=== PATIENT | male | born 1935 | race Caucasian/White ===

== ENCOUNTER → 2019-06-19 | Outpatient (CLI) | payer MEDICARE ==
[~2019-06-19] MED LIST: ATOR20TA PO; GADOTERATE 7.5 MMOL/15 ML SYR ONE; METO200T47 PO; WARF2TAB PO
== END | disposition home or self-care (01) ==
LOC: CFH 10:12
PROVIDERS: ATTEND Psychiatry & Neurology Neurology
DX: G31.89 Other specified degenerative diseases of nervous system (principal)
CPT/HCPCS: 70553; A9575

== ENCOUNTER 2019-08-24 20:13 | Emergency (ER) | payer MEDICARE ==
[~2019-08-24] VITALS: Ht 193 cm; Wt 81.8 kg
[~2019-08-24 20:13] MED LIST changes: -GADOTERATE 7.5 MMOL/15 ML SYR ONE
[2019-08-24] MEDS ORDERED: LIDOCAINE 1%-EPI 1:100K, 20ML ONE (20:16)
[2019-08-24] MEDS ORDERED: LIDOCAINE 1%-EPI 1:100K, 50ML INFIL ONE (20:30)
[2019-08-24] MEDS ORDERED: PLEASE ENTER HEIGHT AND WEIGHT MC SCH (20:30)
[2019-08-24] MEDS ORDERED: LIDOCAINE 1%-EPI 1:100K, 20ML INFIL ONE ×2 (20:30)
--- NOTE | 2019-08-24 22:05 | NUR ---
Pt road tested in room after sutures. Pt had altered gait in room and required holding onto a wall in order to ambulate.
--- NOTE | 2019-08-24 22:05 | NUR ---
Pt has sitter in room now. Pt resting in bed connected to monitor.
[2019-08-24 22:14] LABS: BASOPHILS # (AUTO) 0.04 x10^3/uL (0-0.1); BASOPHILS % (AUTO) 0 % (0-1); EOSINOPHILS # (AUTO) 0.05 x10^3/uL (0-0.4); EOSINOPHILS % (AUTO) 1 % (1-7); LYMPHOCYTES # (AUTO) 1.47 x10^3/uL (1-3.4); LYMPHOCYTES % (AUTO) 15 % (22-44); MD NO; MEAN CORPUSCULAR HEMOGLOBIN 34.7 pg (27.5-34.5); MEAN CORPUSCULAR HGB CONC 33.1 g/dL (33.2-36.2); MEAN CORPUSCULAR VOLUME 104.8 fL (81-97); MEAN PLATELET VOLUME 6.7 fL (7.4-10.4); MONOCYTES # (AUTO) 1.03 x10^3/uL (0.2-0.8); MONOCYTES % (AUTO) 10 % (2-9); NEUTROPHILS # (AUTO) 7.36 x10^3/uL (1.8-6.8); NEUTROPHILS % (AUTO) 74 % (42-75); PLATELET COUNT 291 x10^3/uL (130-400); RED BLOOD COUNT 4.66 x10^6/uL (4.38-5.82); RED CELL DISTRIBUTION WIDTH 13.6 % (9.4-14.8)
--- NOTE | 2019-08-24 22:16 | NUR ---
TASK RN: PT REMOVNIG MONITORING REFUSING VITALS AND SHOUTING AT STAFF. PT REDIRECTED BACK TO BED AND IS NOW SLEEPING WITH SITTER NEARBY FOR SAFETY
[2019-08-24 22:22] LABS: ALANINE AMINOTRANSFERASE 18 U/L (12-78); ALBUMIN 2.9 g/dL (3.4-5.0); ALKALINE PHOSPHATASE 148 U/L (45-117); ANION GAP 6 mmol/L (5-15); BILIRUBIN,TOTAL 1.3 mg/dL (0.2-1.0); CALCIUM 8.6 mg/dL (8.5-10.1); CHLORIDE 100 mmol/L (98-107); CREATININE 0.69 mg/dL (0.7-1.3); TOTAL PROTEIN 7.3 g/dL (6.4-8.2)
[2019-08-24 22:32] VITALS: BP 119/78
--- NOTE | 2019-08-24 23:43 | NUR ---
PT DC HOME VIA [facility] AWARE AND IS WAITING AT HOME FOR HIM
== END 2019-08-24 23:45 | disposition home or self-care (01) ==
LOC: ED 23:05
DX: S01.81XA Laceration without foreign body of other part of head, initial encounter (principal); S01.01XA Laceration without foreign body of scalp, initial encounter; F10.220 Alcohol dependence with intoxication, uncomplicated; Y90.9 Presence of alcohol in blood, level not specified; I10 Essential (primary) hypertension; I48.91 Unspecified atrial fibrillation; G30.9 Alzheimer's disease, unspecified; F02.80 Dementia in other diseases classified elsewhere, unspecified severity, without behavioral disturbance, psychotic disturbance, mood disturbance, and anxiety; W07.XXXA Fall from chair, initial encounter; Y93.89 Activity, other specified; Y92.009 Unspecified place in unspecified non-institutional (private) residence as the place of occurrence of the external cause; Y99.8 Other external cause status
CPT/HCPCS: 12002; 36415; 70450; 72125; 80053; 80307; 85025; 93005; 99285

== ENCOUNTER 2019-10-19 13:07 | Inpatient (IN) | payer MEDICARE ==
[~2019-10-19] VITALS: Ht 193 cm; Wt 100.1 kg
--- NOTE | 2019-10-19 13:59 | NUR ---
BREAK RN: THIS IS A 83 YEAR OLD MALE WHO WAS BIB AMBULANCE FOR LOW BACK TIGHTNESS AND WEAKNESS TO BLE. PER GIOVANNI, PT A/O X 3. ON ARRIVAL, PT ORIENTED X PERSON AND AND HAS DIFFICULTY FOLLOWING COMMANDS. HX OF ALZHEIMERS-UNABLE TO DETERMINE BASELINE. PT STATES "I BLACKED OUT TODAY, THAT'S WHY I'M HERE". PT STATES INTERMITTENT WEAKNESS AND SYNCOPE WHILE WALKING IN HOUSE. DOES NOT KNOW IF HE HIT HEAD. PT DENIES PAIN. PT PLACED ON SPA EXPERIENCE COORDINATOR 90-106 AFIB, CONTINOUS SP02 AND CYCLE VS.
--- NOTE | 2019-10-19 14:10 | NUR ---
BREAK RN: PER MT, PT CALLED AND WOULD LIKE IS "ABDOMINAL CAVITY DRAINED, HE IS SCHEDULED NEXT WEEK FOR IT". NOTIFED MD OF CALL.
[2019-10-19] MEDS ORDERED: SODIUM CHLORIDE FLUSH 10ML SYR IVF ONE (14:30)
[2019-10-19 14:44] LABS: BASOPHILS # (AUTO) 0.07 x10^3/uL (0-0.1); BASOPHILS % (AUTO) 1 % (0-1); EOSINOPHILS # (AUTO) 0.17 x10^3/uL (0-0.4); EOSINOPHILS % (AUTO) 2 % (1-7); LYMPHOCYTES # (AUTO) 1.64 x10^3/uL (1-3.4); LYMPHOCYTES % (AUTO) 16 % (22-44); MD NO; MEAN CORPUSCULAR HEMOGLOBIN 35.2 pg (27.5-34.5); MEAN CORPUSCULAR HGB CONC 33.2 g/dL (33.2-36.2); MEAN CORPUSCULAR VOLUME 106.1 fL (81-97); MEAN PLATELET VOLUME 6.3 fL (7.4-10.4); MONOCYTES # (AUTO) 1.15 x10^3/uL (0.2-0.8); MONOCYTES % (AUTO) 12 % (2-9); NEUTROPHILS # (AUTO) 6.94 x10^3/uL (1.8-6.8); NEUTROPHILS % (AUTO) 70 % (42-75); PLATELET COUNT 235 x10^3/uL (130-400); RED BLOOD COUNT 4.34 x10^6/uL (4.38-5.82); RED CELL DISTRIBUTION WIDTH 13.5 % (9.4-14.8)
--- NOTE | 2019-10-19 14:45 | NUR ---
PT TO XR.
--- NOTE | 2019-10-19 14:45 | NUR ---
Rena briceño in EDM - 10/19/19 at [address] PT [address]
[2019-10-19 14:54] LABS: ALANINE AMINOTRANSFERASE 16 U/L (12-78); ALBUMIN 2.8 g/dL (3.4-5.0); ANION GAP 7 mmol/L (5-15); CALCIUM 8.8 mg/dL (8.5-10.1); CHLORIDE 103 mmol/L (98-107); CREATININE 0.69 mg/dL (0.7-1.3)
[2019-10-19 14:58] LABS: ALKALINE PHOSPHATASE 135 U/L (45-117); TOTAL PROTEIN 6.6 g/dL (6.4-8.2); TROPONIN I < 0.015 ng/mL (0.000-0.045)
--- NOTE | 2019-10-19 15:03 | NUR ---
CALL FROM , UPDATED ON POC.
--- NOTE | 2019-10-19 15:50 | NUR ---
PT OBSERVED SITTING AT END OF BED, HR 167 AFIB ON MONITOR. ERP NOTIFIED. PT ASSISTED BACK TO LYING POSITION WITH HR DECREASE TO 120S, AFIB. EKG BY DULL COAT MILL OPERATOR. NS BOLUS STARTED, INFUSING PER ERP ORDER. AFIB CURRENTLY, RATE 108-126. OTHER VSS/UPDATED IN COMPUTER.
[2019-10-19] MEDS ORDERED: SODIUM CHLORIDE 0.9% 1,000ML IVBOLUS ONE (16:00)
--- NOTE | 2019-10-19 16:03 | NUR ---
SITTER REQUEST D/T CONFUSION, PREVIOUS ED NOTE STATING PT REMOVING MEDICAL MONITORING AND ATTEMPTING TO GET OOB.
--- NOTE | 2019-10-19 16:13 | NUR ---
PT RESTING QUIETLY ON GURNEY. AFIB, RATE 100 ON MONITOR-ERP UPDATED.
[2019-10-19] MEDS ORDERED: DILTIAZEM 5 MG/ML, 5ML ONE (16:27)
[2019-10-19] MEDS ORDERED: DILTIAZEM 5 MG/ML, 5ML IV ONE (16:30)
--- NOTE | 2019-10-19 16:32 | NUR ---
ODALIS GIVEN PER ERP ORDER FOR AFIB 130S. AT BS. ALL QUESTIONS ANSWERED. PER , SHE CALLED GIOVANNI B/C PT COULDN'T GET UP OOT OF CHAIR TODAY. ERP AT BS.
[2019-10-19] MEDS ORDERED: SPIRONOLACTONE PO (16:37)
[2019-10-19] MEDS ORDERED: LASIX PO (16:37)
--- NOTE | 2019-10-19 16:50 | NUR ---
BLANKET PROVIDED PER REQUEST BY . PT APPEARS COMFORTABLE. VSS.
--- NOTE | 2019-10-19 17:00 | NUR ---
TRUCK LEASING MANAGER: PT'S TO BE LEAVING PER PRIMARY RN ORQUIDEA AND RN REPORTS PT REMAINS CONFUSED, REQUESTS SITTER. HOUSE [facility]SING [facility] NOTIFIED AND AWARE, "TO ASSIGN SITTER WHEN STAFF AVAILABLE." INDUSTRIAL MAINTENANCE MECHANIC IRVING CURRENTLY SITTER AT BEDSIDE FOR SAFETY OBSERVATION UNTIL ASSISTANT SCIENTIST AVAILABLE.
--- NOTE | 2019-10-19 17:03 | NUR ---
[facility] IN TO SEE PT. CURTAIN FELLER BLINDSTITCH TO BE SITTER.
[2019-10-19] MEDS ORDERED: SODIUM CHLORIDE 0.9% 1,000 ML IV SCH (17:13)
[2019-10-19] MEDS ORDERED: LABETALOL 5MG/ML, 20ML IVPush PRN (17:30)
[2019-10-19] MEDS ORDERED: ACETAMINOPHEN 325 MG TABLET PO PRN (17:30)
--- NOTE | 2019-10-19 17:42 | NUR ---
PT TO CT.
[2019-10-19 17:50] LABS: TROPONIN I < 0.015 ng/mL (0.000-0.045)
[2019-10-19 17:50] LABS: INTERNATIONAL NORMALIZED RATIO 1.13 (0.93-1.1)
--- NOTE | 2019-10-19 18:09 | NUR ---
ATTEMPT TO CALL REPORT, RN DANIELALE-WILL CALL BACK.
--- NOTE | 2019-10-19 18:17 | NUR ---
BOOK JACKET COVER MACHINE OPERATOR: THERAPEUTIC RIDING INSTRUCTOR AT BEDSIDE AT THIS TIME TO RELIEVE JIG BUILDER FROM SITTER POSITION. PRIMARY RN ORQUIDEA AWARE OF CHANGED.
--- NOTE | 2019-10-19 18:25 | NUR ---
CALL TO FLOOR SUP AFTER RN NOT AVAILABLE FOR REPORT. SUP ABLE TO GET RN. REPORT TO HECTOR HENDRICKS, PT READY FOR TRANSPORT TO FLOOR.
--- NOTE | 2019-10-19 18:35 | NUR ---
US AT BS. PT TO BE TRANSPORTED TO FLOOR AFTER US.
[2019-10-19 19:43] VITALS: BP 130/76
[2019-10-19] MEDS: METOPROLOL TARTRATE 50 MG TAB PO SCH (20:55)
[2019-10-19] MEDS: ENOXAPARIN 40 MG/0.4 ML SQ SCH (20:55)
[2019-10-19 23:48] LABS: TROPONIN I < 0.015 ng/mL (0.000-0.045)
[2019-10-20 00:30] LABS: MICROSCOPIC NOT IND
[2019-10-20 00:44] VITALS: BP 132/80
[2019-10-20 05:14] LABS: BASOPHILS # (AUTO) 0.03 x10^3/uL (0-0.1); BASOPHILS % (AUTO) 0 % (0-1); EOSINOPHILS # (AUTO) 0.08 x10^3/uL (0-0.4); EOSINOPHILS % (AUTO) 1 % (1-7); LYMPHOCYTES # (AUTO) 1.17 x10^3/uL (1-3.4); LYMPHOCYTES % (AUTO) 9 % (22-44); MD NO; MEAN CORPUSCULAR HEMOGLOBIN 34.8 pg (27.5-34.5); MEAN CORPUSCULAR HGB CONC 32.9 g/dL (33.2-36.2); MEAN CORPUSCULAR VOLUME 105.8 fL (81-97); MEAN PLATELET VOLUME 6.7 fL (7.4-10.4); MONOCYTES # (AUTO) 1.21 x10^3/uL (0.2-0.8); MONOCYTES % (AUTO) 10 % (2-9); NEUTROPHILS # (AUTO) 9.89 x10^3/uL (1.8-6.8); NEUTROPHILS % (AUTO) 80 % (42-75); PLATELET COUNT 226 x10^3/uL (130-400); RED BLOOD COUNT 4.37 x10^6/uL (4.38-5.82); RED CELL DISTRIBUTION WIDTH 13.2 % (9.4-14.8)
[2019-10-20 05:17] LABS: ALBUMIN 2.6 g/dL (3.4-5.0); ANION GAP 8 mmol/L (5-15); CALCIUM 8.3 mg/dL (8.5-10.1); CHLORIDE 104 mmol/L (98-107)
[2019-10-20 05:21] LABS: ALANINE AMINOTRANSFERASE 15 U/L (12-78); ALKALINE PHOSPHATASE 112 U/L (45-117); BILIRUBIN,TOTAL 3.9 mg/dL (0.2-1.0); CREATININE 0.68 mg/dL (0.7-1.3); TOTAL PROTEIN 6.4 g/dL (6.4-8.2); TROPONIN I < 0.015 ng/mL (0.000-0.045)
[2019-10-20 06:39] VITALS: BP 125/80
[2019-10-20] MEDS: ASPIRIN 325 MG TABLET EC PO SCH (06:39)
[2019-10-20] MEDS: METOPROLOL TARTRATE 50 MG TAB PO SCH ×2 (06:40→18:47)
[2019-10-20 15:51] VITALS: BP 123/77
[2019-10-20 18:27] VITALS: BP 115/71
[2019-10-20] MEDS: TAMSULOSIN 0.4 MG CAP.ER.24H PO SCH (21:39)
[2019-10-20] MEDS: ENOXAPARIN 40 MG/0.4 ML SQ SCH (21:39)
[2019-10-21 00:02] VITALS: BP 123/85
[2019-10-21] MEDS ORDERED: INSTRUCTION SEE COMMENTS XX PRN (00:30)
[2019-10-21] MEDS ORDERED: AVOID BENZODIAZEPINES MC PRN (00:30)
[2019-10-21] MEDS: MELATONIN 3 MG TABLET PO SCH ×2 (03:26→21:31)
[2019-10-21 05:30] LABS: BASOPHILS # (AUTO) 0.03 x10^3/uL (0-0.1); BASOPHILS % (AUTO) 0 % (0-1); EOSINOPHILS # (AUTO) 0.01 x10^3/uL (0-0.4); EOSINOPHILS % (AUTO) 0 % (1-7); LYMPHOCYTES # (AUTO) 0.53 x10^3/uL (1-3.4); LYMPHOCYTES % (AUTO) 5 % (22-44); MD NO; MEAN CORPUSCULAR HGB CONC 33.2 g/dL (33.2-36.2); MEAN CORPUSCULAR VOLUME 105.4 fL (81-97); MEAN PLATELET VOLUME 6.9 fL (7.4-10.4); MONOCYTES # (AUTO) 0.73 x10^3/uL (0.2-0.8); MONOCYTES % (AUTO) 6 % (2-9); NEUTROPHILS # (AUTO) 10.48 x10^3/uL (1.8-6.8); NEUTROPHILS % (AUTO) 89 % (42-75); PLATELET COUNT 216 x10^3/uL (130-400); RED BLOOD COUNT 4.07 x10^6/uL (4.38-5.82); RED CELL DISTRIBUTION WIDTH 13.4 % (9.4-14.8)
[2019-10-21 05:39] LABS: ANION GAP 11 mmol/L (5-15); CALCIUM 8.3 mg/dL (8.5-10.1); CHLORIDE 103 mmol/L (98-107); CREATININE 0.84 mg/dL (0.7-1.3)
[2019-10-21] MEDS: METOPROLOL TARTRATE 50 MG TAB PO SCH ×2 (06:26→17:35)
[2019-10-21] MEDS: ASPIRIN 325 MG TABLET EC PO SCH (06:26)
[2019-10-21 06:38] VITALS: BP 126/74
[2019-10-21 12:05] VITALS: BP 120/80
[2019-10-21 17:35] VITALS: BP 123/78
[2019-10-21 19:00] VITALS: BP 116/78
[2019-10-21] MEDS: ENOXAPARIN 40 MG/0.4 ML SQ SCH (21:31)
[2019-10-21] MEDS: TAMSULOSIN 0.4 MG CAP.ER.24H PO SCH (21:31)
[2019-10-22 04:00] VITALS: BP 132/76
[2019-10-22 05:37] LABS: MEAN CORPUSCULAR HEMOGLOBIN 35.9 pg (27.5-34.5); MEAN CORPUSCULAR HGB CONC 33.7 g/dL (33.2-36.2); MEAN CORPUSCULAR VOLUME 106.5 fL (81-97); MEAN PLATELET VOLUME 6.8 fL (7.4-10.4); PLATELET COUNT 241 x10^3/uL (130-400); RED BLOOD COUNT 4.24 x10^6/uL (4.38-5.82); RED CELL DISTRIBUTION WIDTH 13.1 % (9.4-14.8)
[2019-10-22 05:42] LABS: ANION GAP 9 mmol/L (5-15); CHLORIDE 103 mmol/L (98-107); CREATININE 0.81 mg/dL (0.7-1.3)
[2019-10-22 05:54] LABS: BASOPHILS # (AUTO) 0.04 x10^3/uL (0-0.1); BASOPHILS % (AUTO) 0 % (0-1); EOSINOPHILS # (AUTO) 0.09 x10^3/uL (0-0.4); EOSINOPHILS % (AUTO) 1 % (1-7); LYMPHOCYTES # (AUTO) 1.31 x10^3/uL (1-3.4); LYMPHOCYTES % (AUTO) 9 % (22-44); MD SCAN; MONOCYTES # (AUTO) 1.79 x10^3/uL (0.2-0.8); MONOCYTES % (AUTO) 13 % (2-9); NEUTROPHILS # (AUTO) 10.88 x10^3/uL (1.8-6.8); NEUTROPHILS % (AUTO) 77 % (42-75)
[2019-10-22 06:18] VITALS: BP 111/79
[2019-10-22] MEDS: METOPROLOL TARTRATE 50 MG TAB PO SCH ×2 (06:20→20:03)
[2019-10-22] MEDS: ASPIRIN 325 MG TABLET EC PO SCH (06:20)
[2019-10-22 06:35] VITALS: BP 106/62
[2019-10-22] MEDS: QUETIAPINE 25MG TABLET PO PRN (11:12)
[2019-10-22] MEDS ORDERED: ALBUTEROL/IPRATROPIUM 2.5MG/0.5MG, 3 ML ONE (11:24)
[2019-10-22 12:10] VITALS: BP 123/79
[2019-10-22 19:56] VITALS: BP 116/77
[2019-10-22] MEDS: ENOXAPARIN 40 MG/0.4 ML SQ SCH (20:03)
[2019-10-22] MEDS: MELATONIN 3 MG TABLET PO SCH (20:03)
[2019-10-22] MEDS: TAMSULOSIN 0.4 MG CAP.ER.24H PO SCH (20:03)
[2019-10-23 01:14] VITALS: BP 110/70
[2019-10-23 06:05] VITALS: BP 110/76
[2019-10-23] MEDS: METOPROLOL TARTRATE 50 MG TAB PO SCH ×2 (06:07→17:37)
[2019-10-23] MEDS: ASPIRIN 325 MG TABLET EC PO SCH (06:07)
[2019-10-23 06:30] VITALS: BP 107/65
[2019-10-23 07:01] LABS: MEAN CORPUSCULAR HEMOGLOBIN 35.2 pg (27.5-34.5); MEAN CORPUSCULAR VOLUME 106.7 fL (81-97); MEAN PLATELET VOLUME 6.6 fL (7.4-10.4); PLATELET COUNT 203 x10^3/uL (130-400); RED BLOOD COUNT 4.27 x10^6/uL (4.38-5.82); RED CELL DISTRIBUTION WIDTH 13.3 % (9.4-14.8)
[2019-10-23 07:14] LABS: ANION GAP 8 mmol/L (5-15); CALCIUM 8.1 mg/dL (8.5-10.1); CHLORIDE 108 mmol/L (98-107); CREATININE 0.62 mg/dL (0.7-1.3)
[2019-10-23 07:21] LABS: BASOPHILS # (AUTO) 0.05 x10^3/uL (0-0.1); BASOPHILS % (AUTO) 1 % (0-1); EOSINOPHILS # (AUTO) 0.23 x10^3/uL (0-0.4); EOSINOPHILS % (AUTO) 3 % (1-7); LYMPHOCYTES # (AUTO) 1.33 x10^3/uL (1-3.4); LYMPHOCYTES % (AUTO) 14 % (22-44); MD SCAN; MONOCYTES # (AUTO) 1.19 x10^3/uL (0.2-0.8); MONOCYTES % (AUTO) 13 % (2-9); NEUTROPHILS # (AUTO) 6.51 x10^3/uL (1.8-6.8); NEUTROPHILS % (AUTO) 70 % (42-75)
[2019-10-23 13:45] VITALS: BP 115/76
[2019-10-23 13:46] VITALS: BP 106/66
[2019-10-23] MEDS ORDERED: OLAN5TAB7 PO (16:14)
[2019-10-23] MEDS ORDERED: GALA4TAB PO (16:14)
[2019-10-23] MEDS ORDERED: SPIR50TA PO (16:14)
[2019-10-23] MEDS ORDERED: FURO20TA3 PO (16:14)
[2019-10-23] MEDS ORDERED: FUROSEMIDE 20 MG TABLET ONE (17:33)
[2019-10-23] MEDS: FUROSEMIDE 20 MG TABLET PO SCH (17:37)
[2019-10-23 20:04] VITALS: BP 101/62
[2019-10-23] MEDS ORDERED: BISACODYL 10 MG SUPP PR PRN (21:00)
[2019-10-23] MEDS: DOCUSATE 100 MG CAPSULE PO SCH (21:35)
[2019-10-23] MEDS: TAMSULOSIN 0.4 MG CAP.ER.24H PO SCH (21:35)
[2019-10-23] MEDS: GALANTAMINE 4 MG TABLET PO SCH (21:35)
[2019-10-23] MEDS: ENOXAPARIN 40 MG/0.4 ML SQ SCH (21:36)
[2019-10-23] MEDS: MELATONIN 3 MG TABLET PO SCH (21:36)
[2019-10-24 01:23] VITALS: BP 116/77
[2019-10-24 05:13] VITALS: BP 102/74
[2019-10-24 05:18] LABS: ANION GAP 7 mmol/L (5-15); CALCIUM 8.5 mg/dL (8.5-10.1); CHLORIDE 108 mmol/L (98-107); CREATININE 0.62 mg/dL (0.7-1.3)
[2019-10-24] MEDS: ASPIRIN 325 MG TABLET EC PO SCH (06:00)
[2019-10-24] MEDS: METOPROLOL TARTRATE 50 MG TAB PO SCH ×2 (06:00→17:37)
[2019-10-24 07:55] LABS: BASOPHILS # (AUTO) 0.04 x10^3/uL (0-0.1); BASOPHILS % (AUTO) 0 % (0-1); EOSINOPHILS # (AUTO) 0.16 x10^3/uL (0-0.4); EOSINOPHILS % (AUTO) 2 % (1-7); LYMPHOCYTES # (AUTO) 1.33 x10^3/uL (1-3.4); LYMPHOCYTES % (AUTO) 13 % (22-44); MD SCAN; MEAN CORPUSCULAR HEMOGLOBIN 34.9 pg (27.5-34.5); MEAN CORPUSCULAR HGB CONC 32.8 g/dL (33.2-36.2); MEAN CORPUSCULAR VOLUME 106.3 fL (81-97); MONOCYTES # (AUTO) 1.31 x10^3/uL (0.2-0.8); MONOCYTES % (AUTO) 13 % (2-9); NEUTROPHILS # (AUTO) 7.18 x10^3/uL (1.8-6.8); NEUTROPHILS % (AUTO) 72 % (42-75); PLATELET COUNT 254 x10^3/uL (130-400); RED BLOOD COUNT 4.57 x10^6/uL (4.38-5.82); RED CELL DISTRIBUTION WIDTH 13.4 % (9.4-14.8)
[2019-10-24] MEDS: DOCUSATE 100 MG CAPSULE PO SCH ×2 (08:13→20:43)
[2019-10-24] MEDS: OLANZAPINE 5 MG TABLET PO SCH (08:13)
[2019-10-24] MEDS: GALANTAMINE 4 MG TABLET PO SCH ×2 (08:13→20:43)
[2019-10-24] MEDS: FUROSEMIDE 20 MG TABLET PO SCH ×2 (08:14→10:47)
[2019-10-24] MEDS: SPIRONOLACTONE 50 MG TABLET PO SCH (08:14)
[2019-10-24 08:19] VITALS: BP 105/68
[2019-10-24 13:44] VITALS: BP 102/67
[2019-10-24] MEDS: ENOXAPARIN 40 MG/0.4 ML SQ SCH (20:43)
[2019-10-24] MEDS: MELATONIN 3 MG TABLET PO SCH (20:43)
[2019-10-24] MEDS: TAMSULOSIN 0.4 MG CAP.ER.24H PO SCH (20:43)
[2019-10-24 21:00] VITALS: BP 102/66
[2019-10-24] MEDS: QUETIAPINE 25MG TABLET PO PRN (22:44)
[2019-10-25 06:01] VITALS: BP 135/80
[2019-10-25] MEDS: ASPIRIN 325 MG TABLET EC PO SCH (06:01)
[2019-10-25] MEDS: METOPROLOL TARTRATE 50 MG TAB PO SCH ×2 (06:01→18:00)
[2019-10-25] MEDS: SPIRONOLACTONE 50 MG TABLET PO SCH (07:58)
[2019-10-25] MEDS: GALANTAMINE 4 MG TABLET PO SCH ×2 (07:58→20:41)
[2019-10-25] MEDS: DOCUSATE 100 MG CAPSULE PO SCH ×2 (07:58→20:41)
[2019-10-25] MEDS: FUROSEMIDE 20 MG TABLET PO SCH ×2 (07:58→16:49)
[2019-10-25] MEDS: OLANZAPINE 5 MG TABLET PO SCH (07:58)
[2019-10-25 08:20] VITALS: BP 108/61
[2019-10-25 14:08] VITALS: BP 99/65
[2019-10-25 20:17] VITALS: BP 103/72
[2019-10-25] MEDS: TAMSULOSIN 0.4 MG CAP.ER.24H PO SCH (20:41)
[2019-10-25] MEDS: MELATONIN 3 MG TABLET PO SCH (20:41)
[2019-10-25] MEDS: ENOXAPARIN 40 MG/0.4 ML SQ SCH (20:41)
[2019-10-26 01:19] VITALS: BP 102/68
[2019-10-26 05:49] VITALS: BP 106/71
[2019-10-26] MEDS: METOPROLOL TARTRATE 50 MG TAB PO SCH ×2 (05:50→23:09)
[2019-10-26] MEDS: ASPIRIN 325 MG TABLET EC PO SCH (05:50)
[2019-10-26 06:48] VITALS: BP 109/70
[2019-10-26 07:15] LABS: BASOPHILS # (AUTO) 0.04 x10^3/uL (0-0.1); BASOPHILS % (AUTO) 0 % (0-1); EOSINOPHILS # (AUTO) 0.12 x10^3/uL (0-0.4); EOSINOPHILS % (AUTO) 1 % (1-7); LYMPHOCYTES # (AUTO) 1.28 x10^3/uL (1-3.4); LYMPHOCYTES % (AUTO) 12 % (22-44); MD NO; MEAN CORPUSCULAR HGB CONC 32.8 g/dL (33.2-36.2); MEAN CORPUSCULAR VOLUME 106.9 fL (81-97); MEAN PLATELET VOLUME 6.6 fL (7.4-10.4); MONOCYTES # (AUTO) 1.22 x10^3/uL (0.2-0.8); MONOCYTES % (AUTO) 12 % (2-9); NEUTROPHILS # (AUTO) 7.69 x10^3/uL (1.8-6.8); NEUTROPHILS % (AUTO) 74 % (42-75); PLATELET COUNT 255 x10^3/uL (130-400); RED BLOOD COUNT 4.87 x10^6/uL (4.38-5.82); RED CELL DISTRIBUTION WIDTH 13.5 % (9.4-14.8)
[2019-10-26 07:28] LABS: ANION GAP 8 mmol/L (5-15); CALCIUM 8.4 mg/dL (8.5-10.1); CHLORIDE 106 mmol/L (98-107)
[2019-10-26 07:29] LABS: CREATININE 0.64 mg/dL (0.7-1.3)
[2019-10-26] MEDS: FUROSEMIDE 20 MG TABLET PO SCH ×2 (07:36→17:47)
[2019-10-26] MEDS: GALANTAMINE 4 MG TABLET PO SCH ×2 (10:22→23:08)
[2019-10-26] MEDS: SPIRONOLACTONE 50 MG TABLET PO SCH (10:22)
[2019-10-26] MEDS: OLANZAPINE 5 MG TABLET PO SCH (10:22)
[2019-10-26] MEDS: DOCUSATE 100 MG CAPSULE PO SCH ×2 (10:22→23:08)
[2019-10-26 14:48] VITALS: BP 101/69
[2019-10-26 21:14] VITALS: BP 110/65
[2019-10-26] MEDS: MELATONIN 3 MG TABLET PO SCH (23:08)
[2019-10-26] MEDS: TAMSULOSIN 0.4 MG CAP.ER.24H PO SCH (23:08)
[2019-10-26] MEDS: ENOXAPARIN 40 MG/0.4 ML SQ SCH (23:09)
[2019-10-27 05:06] LABS: ANION GAP 6 mmol/L (5-15); CALCIUM 8.5 mg/dL (8.5-10.1); CHLORIDE 104 mmol/L (98-107); CREATININE 0.76 mg/dL (0.7-1.3)
[2019-10-27] MEDS: ASPIRIN 325 MG TABLET EC PO SCH (05:58)
[2019-10-27] MEDS: METOPROLOL TARTRATE 50 MG TAB PO SCH ×2 (05:58→17:46)
[2019-10-27 06:42] VITALS: BP 108/67
[2019-10-27 11:01] VITALS: BP 102/69
[2019-10-27] MEDS: FUROSEMIDE 20 MG TABLET PO SCH ×2 (11:16→17:46)
[2019-10-27] MEDS: DOCUSATE 100 MG CAPSULE PO SCH ×2 (11:16→23:50)
[2019-10-27] MEDS: SPIRONOLACTONE 50 MG TABLET PO SCH (11:16)
[2019-10-27] MEDS: OLANZAPINE 5 MG TABLET PO SCH (11:17)
[2019-10-27] MEDS: GALANTAMINE 4 MG TABLET PO SCH ×2 (11:17→23:50)
[2019-10-27 13:45] VITALS: BP 115/74
[2019-10-27 17:43] VITALS: BP 109/74
[2019-10-27 18:40] VITALS: BP 94/64
[2019-10-27] MEDS: MELATONIN 3 MG TABLET PO SCH (23:50)
[2019-10-27] MEDS: TAMSULOSIN 0.4 MG CAP.ER.24H PO SCH (23:51)
[2019-10-27] MEDS: ENOXAPARIN 40 MG/0.4 ML SQ SCH (23:51)
[2019-10-28] MEDS: ASPIRIN 325 MG TABLET EC PO SCH (06:16)
[2019-10-28] MEDS: METOPROLOL TARTRATE 50 MG TAB PO SCH ×2 (06:16→18:15)
[2019-10-28 06:43] LABS: BASOPHILS # (AUTO) 0.05 x10^3/uL (0-0.1); BASOPHILS % (AUTO) 0 % (0-1); EOSINOPHILS # (AUTO) 0.14 x10^3/uL (0-0.4); EOSINOPHILS % (AUTO) 1 % (1-7); LYMPHOCYTES # (AUTO) 1.63 x10^3/uL (1-3.4); LYMPHOCYTES % (AUTO) 15 % (22-44); MD NO; MEAN CORPUSCULAR HEMOGLOBIN 34.9 pg (27.5-34.5); MEAN CORPUSCULAR VOLUME 105.7 fL (81-97); MEAN PLATELET VOLUME 6.9 fL (7.4-10.4); MONOCYTES # (AUTO) 1.34 x10^3/uL (0.2-0.8); MONOCYTES % (AUTO) 12 % (2-9); NEUTROPHILS # (AUTO) 7.68 x10^3/uL (1.8-6.8); NEUTROPHILS % (AUTO) 71 % (42-75); PLATELET COUNT 263 x10^3/uL (130-400); RED CELL DISTRIBUTION WIDTH 13.7 % (9.4-14.8)
[2019-10-28 06:47] LABS: ANION GAP 8 mmol/L (5-15); CALCIUM 8.4 mg/dL (8.5-10.1); CHLORIDE 101 mmol/L (98-107); CREATININE 0.71 mg/dL (0.7-1.3)
[2019-10-28 07:10] VITALS: BP 93/61
[2019-10-28] MEDS: FUROSEMIDE 20 MG TABLET PO SCH ×2 (09:18→18:15)
[2019-10-28] MEDS: OLANZAPINE 5 MG TABLET PO SCH (09:19)
[2019-10-28] MEDS: GALANTAMINE 4 MG TABLET PO SCH ×2 (09:19→20:50)
[2019-10-28] MEDS: SPIRONOLACTONE 50 MG TABLET PO SCH (09:22)
[2019-10-28] MEDS: DOCUSATE 100 MG CAPSULE PO SCH ×2 (09:22→20:51)
[2019-10-28 09:23] VITALS: BP 99/60
[2019-10-28] MEDS ORDERED: SODIUM CHLORIDE 0.9%, 250ML IVBOLUS ONE (13:30)
[2019-10-28 13:40] VITALS: BP 122/73
[2019-10-28 19:00] VITALS: BP 102/70
[2019-10-28] MEDS: TAMSULOSIN 0.4 MG CAP.ER.24H PO SCH (20:50)
[2019-10-28] MEDS: MELATONIN 3 MG TABLET PO SCH (20:50)
[2019-10-28] MEDS: ENOXAPARIN 40 MG/0.4 ML SQ SCH (20:51)
[2019-10-29 05:05] LABS: ALANINE AMINOTRANSFERASE 50 U/L (12-78); ALBUMIN 2.6 g/dL (3.4-5.0); ANION GAP 8 mmol/L (5-15); CALCIUM 8.5 mg/dL (8.5-10.1); CHLORIDE 98 mmol/L (98-107); CREATININE 0.75 mg/dL (0.7-1.3)
[2019-10-29 05:08] LABS: ALKALINE PHOSPHATASE 125 U/L (45-117); BILIRUBIN,TOTAL 0.8 mg/dL (0.2-1.0); TOTAL PROTEIN 6.1 g/dL (6.4-8.2)
[2019-10-29] MEDS: METOPROLOL TARTRATE 50 MG TAB PO SCH ×2 (06:17→17:25)
[2019-10-29] MEDS: ASPIRIN 325 MG TABLET EC PO SCH (06:17)
[2019-10-29 07:03] LABS: BASOPHILS # (AUTO) 0.05 x10^3/uL (0-0.1); BASOPHILS % (AUTO) 0 % (0-1); EOSINOPHILS # (AUTO) 0.15 x10^3/uL (0-0.4); EOSINOPHILS % (AUTO) 1 % (1-7); LYMPHOCYTES # (AUTO) 1.46 x10^3/uL (1-3.4); LYMPHOCYTES % (AUTO) 12 % (22-44); MD NO; MEAN CORPUSCULAR HEMOGLOBIN 34.9 pg (27.5-34.5); MEAN CORPUSCULAR VOLUME 105.9 fL (81-97); MONOCYTES # (AUTO) 1.32 x10^3/uL (0.2-0.8); MONOCYTES % (AUTO) 11 % (2-9); NEUTROPHILS # (AUTO) 8.86 x10^3/uL (1.8-6.8); NEUTROPHILS % (AUTO) 75 % (42-75); PLATELET COUNT 270 x10^3/uL (130-400); RED BLOOD COUNT 4.61 x10^6/uL (4.38-5.82); RED CELL DISTRIBUTION WIDTH 13.3 % (9.4-14.8)
[2019-10-29 07:05] VITALS: BP 105/66
[2019-10-29] MEDS: SPIRONOLACTONE 50 MG TABLET PO SCH (09:14)
[2019-10-29] MEDS: FUROSEMIDE 20 MG TABLET PO SCH ×2 (09:14→17:25)
[2019-10-29] MEDS: OLANZAPINE 5 MG TABLET PO SCH (09:14)
[2019-10-29] MEDS: GALANTAMINE 4 MG TABLET PO SCH (09:14)
[2019-10-29] MEDS: DOCUSATE 100 MG CAPSULE PO SCH (09:14)
[2019-10-29 12:50] VITALS: BP 106/70
[2019-10-29] MEDS ORDERED: METO50TA82 PO (13:20)
[2019-10-29] MEDS ORDERED: TAMS-11 PO (13:20)
[2019-10-29] MEDS ORDERED: ASPI-650 PO (13:20)
[2019-10-29] MEDS ORDERED: QUET25TA7 PO (13:20)
[2019-10-29] MEDS ORDERED: ACET325T26 PO (13:20)
[2019-10-29] MEDS ORDERED: ENOX40SY4 SQ (13:20)
== END 2019-10-29 18:44 | DRG 308 ==
LOC: ED 15:25 → EDIP 16:39 → INTOOBSV 16:39 → OBSVTOIN 16:39 → 5SO 19:10
PROVIDERS: ADMIT Internal Medicine; ATTEND Hospitalist
PROC: 0T9B70Z Drainage of Bladder with Drainage Device, Via Natural or Artificial Opening (ICD-10-PCS; principal; 2019-10-20)
DX: I48.91 Unspecified atrial fibrillation (principal); E43 Unspecified severe protein-calorie malnutrition; D68.59 Other primary thrombophilia; I65.29 Occlusion and stenosis of unspecified carotid artery; G30.9 Alzheimer's disease, unspecified; F02.80 Dementia in other diseases classified elsewhere, unspecified severity, without behavioral disturbance, psychotic disturbance, mood disturbance, and anxiety; Z66 Do not resuscitate; H91.90 Unspecified hearing loss, unspecified ear; I10 Essential (primary) hypertension; K74.60 Unspecified cirrhosis of liver; R14.0 Abdominal distension (gaseous); R33.9 Retention of urine, unspecified; Z91.14 Patient's other noncompliance with medication regimen; Z68.26 Body mass index [BMI] 26.0-26.9, adult
CPT/HCPCS: 36415; 70450; 71045; 72110; 76705; 76770; 80048; 80053; 81003; 84443; 84484; 85025; 85610; 93005; 93306; 93880; G0378; J1650; J7030; J7050

== ENCOUNTER 2020-01-31 15:26 | Emergency (ER) | payer MEDICARE ==
[~2020-01-31 15:26] MED LIST changes: +ACET325T26 PO; +ASPI-650 PO; +ENOX40SY4 SQ; +FURO20TA3 PO; +GALA4TAB PO; +LASIX PO; +METO-95 PO; +METO50TA82 PO; +OLAN5TAB7 PO; +QUET25TA7 PO; +RISP0.5T24 PO; +SPIR50TA PO; +SPIRONOLACTONE PO; +TAMS-11 PO
[2020-01-31 16:02] LABS: BASOPHILS # (AUTO) 0.05 x10^3/uL (0-0.1); BASOPHILS % (AUTO) 0 % (0-1); EOSINOPHILS # (AUTO) 0.14 x10^3/uL (0-0.4); EOSINOPHILS % (AUTO) 1 % (1-7); LYMPHOCYTES # (AUTO) 1.07 x10^3/uL (1-3.4); LYMPHOCYTES % (AUTO) 8 % (22-44); MD NO; MEAN CORPUSCULAR HEMOGLOBIN 32.3 pg (27.5-34.5); MEAN CORPUSCULAR HGB CONC 32.2 g/dL (33.2-36.2); MEAN CORPUSCULAR VOLUME 100.2 fL (81-97); MEAN PLATELET VOLUME 5.9 fL (7.4-10.4); MONOCYTES # (AUTO) 1.02 x10^3/uL (0.2-0.8); MONOCYTES % (AUTO) 7 % (2-9); NEUTROPHILS % (AUTO) 84 % (42-75); PLATELET COUNT 294 x10^3/uL (130-400); RED BLOOD COUNT 4.72 x10^6/uL (4.38-5.82); RED CELL DISTRIBUTION WIDTH 15.1 % (9.4-14.8)
[2020-01-31 16:14] LABS: ALANINE AMINOTRANSFERASE 22 U/L (12-78); ALBUMIN 2.8 g/dL (3.4-5.0); ANION GAP 5 mmol/L (5-15); CALCIUM 9.3 mg/dL (8.5-10.1); CHLORIDE 102 mmol/L (98-107); CREATININE 0.83 mg/dL (0.7-1.3)
[2020-01-31 16:16] LABS: ALKALINE PHOSPHATASE 148 U/L (45-117); BILIRUBIN,TOTAL 2.4 mg/dL (0.2-1.0); TOTAL PROTEIN 6.9 g/dL (6.4-8.2)
[2020-01-31] MEDS ORDERED: LIDOCAINE 1%, 10ML ONE (16:20)
--- NOTE | 2020-01-31 16:21 | NUR ---
PT HERE FROM HOME. PT UNDER HOSPICE CARE PER ERP. SIGNED DNR ON CHART. PT'S SPOUSE: TONO RAMIREZ [phone].
[2020-01-31] MEDS ORDERED: LIDOCAINE-MPF 1%, 5ML ONE (16:27)
--- NOTE | 2020-01-31 16:34 | NUR ---
PARACENTESIS RN AT BS.
--- NOTE | 2020-01-31 17:40 | NUR ---
CALLED PT'S SPOUSE, INFORMED HER PT IS READY FOR DC. PER SPOUSE, PT NEEDS AMBULANCE TRANSPORT TO THEIR HOME: [id number] [address] [place]. WILL NOTIFY [facility].
--- NOTE | 2020-01-31 17:54 | NUR ---
ASSISTED PT TO STANDING POSITION W/ COUNTRY SALES MANAGER ASSISTANCE. PT VERY WEAK, UNABLE TO TAKE ANY STEPS. [facility] RN NOTIFIED; [facility] TO BE ORDERED. PT RETURNED TO [facility] W/OUT INCIDENT.
[2020-01-31] MEDS ORDERED: SPIR50TA4 PO (18:05)
[2020-01-31] MEDS ORDERED: OLAN5TAB9 PO (18:05)
[2020-01-31] MEDS ORDERED: HYDR-826 PO (18:05)
[2020-01-31 18:06] VITALS: BP 115/29
--- NOTE | 2020-01-31 18:30 | NUR ---
PT REPORT TO ALBA AL RN. PT CARE TRANSFERRED.
--- NOTE | 2020-01-31 19:13 | NUR ---
[facility] HERE FOR PT TRANSPORT HOME
== END 2020-01-31 19:25 | disposition home or self-care (01) ==
LOC: ED 18:03
DX: K70.31 Alcoholic cirrhosis of liver with ascites (principal); R41.82 Altered mental status, unspecified; I48.91 Unspecified atrial fibrillation; I10 Essential (primary) hypertension; G30.9 Alzheimer's disease, unspecified
CPT/HCPCS: 36415; 49083; 80053; 82140; 85025; 87070; 87205; 89051; 99285; J3490